=== PATIENT | female | born 1970 | race Caucasian/White ===

== ENCOUNTER 2024-03-02 08:27 | Day surgery (SDC) | payer BC ==
[~2024-03-02] VITALS: Ht 165.1 cm; Wt 109.5 kg
[~2024-03-02 08:27] MED LIST: LR 1,000 ML IV SCH; Ondansetron 4 MG/2 ML VIAL IV PRN
[2024-03-02] MEDS ORDERED: MICARDIS20 MG PO (09:19)
[2024-03-02] MEDS ORDERED: GERITOL COMPLET1 TA1 PO (09:20)
[2024-03-02] MEDS ORDERED: HCTZ 25MG TAB25 MG PO (09:20)
[2024-03-02] MEDS ORDERED: MAGNESIUM CITR100 MG PO (09:21)
[2024-03-02] MEDS ORDERED: ZYRTEC 10MG10 MG PO (09:21)
[2024-03-02] MEDS ORDERED: PROBIOTICA100 Milli1 (09:22)
[2024-03-02] MEDS ORDERED: COLLAGEN PLUS PO (09:23)
[2024-03-02] MEDS ORDERED: Lidocaine PF 2% (20 MG/ML) 5 ML VIAL ONE (09:48)
[2024-03-02 10:40] VITALS: BP 109/73; PULSE 84; TEMP 96.8
[2024-03-02 10:45] VITALS: BP 117/75; PULSE 75
[2024-03-02 10:52] VITALS: BP 155/102; PULSE 93; TEMP 96.6
[2024-03-02 11:00] VITALS: BP 131/88; PULSE 74
--- NOTE | 2024-03-02 12:10 | NUR ---
1040 Received report from MARTA Mark. Patient returned to [facility]. Patient is alert and answers questions appropriately, able to ambulate from cart to recliner with assistance. 1050 Patient given a muffin and coffee for a PO challenge. Tolerated well. 1035 Dr. Murray in room to update the patient on results and plan for care. 1109 Physician discharge instructions and printed patient educational materials reviewed with the patient. Questions invited and answered. 1157 Patient to lobby via wheelchair for a ride home withher mother in POV.
== END 2024-03-02 11:57 | disposition home or self-care (01) ==
LOC: SDCO 08:27
DX: Z12.11 Encounter for screening for malignant neoplasm of colon (principal); E66.01 Morbid (severe) obesity due to excess calories
CPT/HCPCS: J2704; J7120